=== PATIENT | female | born 1955 | race Caucasian/White ===

== ENCOUNTER → 2022-10-09 | Emergency (ER) | payer OTHER ==
[~2022-10-09] VITALS: Ht 152.4 cm; Wt 70.0 kg
[~2022-10-09] MED LIST: HYDROcodone-ACET 5/325MG TAB PO ONE
[2022-10-09 10:15] LABS: Basophils # (auto) 0 10 ^3/uL (0-0.2); Basophils % (auto) 0.4 % (0.0-2.0); Eosinophils # (auto) 0 10 ^3/uL (0-0.8); Eosinophils % (auto) 0.1 % (0.0-7.0); Hematocrit 42.8 % (36.0-46.0); Hemoglobin 14.7 g/dL (12.2-16.2); Lymphocytes # (auto) 0.7 10 ^3/uL (0.4-5.4); Lymphocytes % (auto) 6.1 % (10.0-50.0); Mean Corpuscular Hemoglobin 30.2 pg (28.0-32.0); Mean Corpuscular Hgb Conc. 34.5 g/dL (32.0-36.0); Mean Corpuscular Volume 87.6 fL (80.0-100.0); Monocytes # (auto) 0.8 10 ^3/uL (0-1.3); Monocytes % (auto) 6.9 % (0.0-12.0); Neutrophils # (auto) 10.2 10 ^3/uL (1.6-8.6); Neutrophils % (auto) 86.5 % (37.0-80.0); Red Blood Cells 4.88 10^6/uL (4.0-5.20); Red Cell Distribution Width 14.5 % (11.8-14.3); White Blood Cell 11.8 10^3/uL (4.4-10.8)
[2022-10-09 10:33] LABS: Albumin 4.1 g/dL (3.4-5.0); Calcium 9.3 mg/dL (8.5-10.1)
[2022-10-09 10:36] LABS: BUN/Creatinine Ratio 13.3 (10.0-20.0); Bilirubin, Total 0.7 mg/dL (0.2-1.0); Total Protein 7.6 g/dL (6.4-8.2)
[2022-10-09 16:04] LABS: Urine Bacteria NONE SEEN /hpf (None Seen); Urine Blood 1+ /uL (Negative); Urine Mucus FEW (None Seen); Urine Specific Gravity 1.017 (1.001-1.035); Urine WBC 1 /hpf (0 - 5)
[2022-10-09 18:00] VITALS: BP 120/75
== END | disposition home or self-care (01) ==
LOC: ER 09:26
DX: R33.9 Retention of urine, unspecified (principal); D72.829 Elevated white blood cell count, unspecified; E11.9 Type 2 diabetes mellitus without complications; E78.5 Hyperlipidemia, unspecified; Z90.710 Acquired absence of both cervix and uterus
CPT/HCPCS: 36415; 51702; 74176; 80053; 81001; 83690; 85025

== ENCOUNTER 2023-03-08 16:18 | Inpatient (IN) | payer OTHER ==
[2023-03-07 22:00] VITALS: BP 133/59; PULSE 72; RESP 17; TEMP 98.2; O2SAT 95
[~2023-03-08] VITALS: Ht 152.4 cm; Wt 73.6 kg
[2023-03-08] MEDS ORDERED: ACETAMINOPHEN 325 MG TAB PO PRN (17:00)
[2023-03-08] MEDS ORDERED: ONDANSETRON HCL 4 MG/2 ML VIAL IV PRN (17:00)
[2023-03-08 17:53] VITALS: BP 138/59; PULSE 57; RESP 18; TEMP 97.5; O2SAT 94
[2023-03-08 18:01] VITALS: BP 138/59; PULSE 57; RESP 18; TEMP 97.5; O2SAT 94
[2023-03-08 20:00] VITALS: PULSE 72; RESP 17; O2SAT 95
[2023-03-08] MEDS: MORPHINE SULFATE INJ 2 MG/ml SYRG IV PRN (20:37)
[2023-03-08] MEDS: cefTRIAXone 1GM/50ML D5W 50 ML IV SCH (20:40)
[2023-03-08] MEDS: SODIUM CHLORIDE 0.9% 1,000 ML IV SCH (20:41)
[2023-03-08] MEDS: HYDROcodone-ACET 5/325MG TAB PO PRN (22:57)
[2023-03-09] VITALS (8 sets, daily range): BP systolic 112–165; BP diastolic 57–81; PULSE 65–79; RESP 14–18; TEMP 97.7–98.6; O2SAT 93–100
[2023-03-09] MEDS: SODIUM CHLORIDE 0.9% 1,000 ML IV SCH ×3 (01:20→20:43)
[2023-03-09] MEDS ORDERED: ALBUAER3 IN (01:40)
[2023-03-09] MEDS ORDERED: FLUT1AER7 IN (02:06)
[2023-03-09] MEDS ORDERED: SEMA3TAB2 PO (02:06)
[2023-03-09] MEDS ORDERED: SERT-160 PO (02:06)
[2023-03-09] MEDS ORDERED: CLON-857 PO (02:06)
[2023-03-09] MEDS ORDERED: ROSU20TA14 PO (02:06)
[2023-03-09] MEDS ORDERED: TRAZ-228 PO (02:06)
[2023-03-09] MEDS: HYDROcodone-ACET 5/325MG TAB PO PRN ×2 (04:54→15:01)
[2023-03-09 06:00] LABS: Basophils # (auto) 0 10 ^3/uL (0-0.2); Basophils % (auto) 0.4 % (0.0-2.0); Eosinophils # (auto) 0.5 10 ^3/uL (0-0.8); Eosinophils % (auto) 8.3 % (0.0-7.0); Hematocrit 32.3 % (36.0-46.0); Hemoglobin 10.9 g/dL (12.2-16.2); Lymphocytes # (auto) 1.6 10 ^3/uL (0.4-5.4); Lymphocytes % (auto) 24.9 % (10.0-50.0); Mean Corpuscular Hemoglobin 29.7 pg (28.0-32.0); Mean Corpuscular Hgb Conc. 33.9 g/dL (32.0-36.0); Mean Corpuscular Volume 87.6 fL (80.0-100.0); Monocytes # (auto) 0.6 10 ^3/uL (0-1.3); Monocytes % (auto) 9.1 % (0.0-12.0); Neutrophils # (auto) 3.7 10 ^3/uL (1.6-8.6); Neutrophils % (auto) 57.3 % (37.0-80.0); Red Blood Cells 3.69 10^6/uL (4.0-5.20); Red Cell Distribution Width 15.5 % (11.8-14.3); White Blood Cell 6.4 10^3/uL (4.4-10.8)
[2023-03-09] MEDS: cefTRIAXone 1GM/50ML D5W 50 ML IV SCH (09:41)
[2023-03-09] MEDS ORDERED: INFLUENZA QUAD 2023-2024 0.5 ML SYRG IM ONE (10:00)
[2023-03-09] MEDS ORDERED: fentaNYL CITRATE 100 MCG/2 ML VL ONE (17:36)
[2023-03-09] MEDS ORDERED: LIDOCAINE 2% (LOCAL ANESTH.) PF 5ml SDV ONE ×2 (17:37→17:49)
[2023-03-09] MEDS ORDERED: GLYCOPYRROLATE 0.2 MG/ML 1ML VIAL ONE (17:37)
[2023-03-09] MEDS ORDERED: ONDANSETRON HCL 4 MG/2 ML VIAL ONE (17:37)
[2023-03-09] MEDS ORDERED: PROPOFOL 10 MG/ML 20 ML IV ONE (17:37)
[2023-03-09] MEDS ORDERED: DexAMETHasone SOD PHOS 10MG/1ML VIAL INJ ONE (17:38)
[2023-03-09] MEDS ORDERED: ONDANSETRON HCL 4 MG/2 ML VIAL IV PRN (19:30)
[2023-03-09] MEDS ORDERED: hydrALAZINE HCL 20 MG/ML VL IV PRN (19:30)
[2023-03-09] MEDS ORDERED: ePHEDrine SULFATE 50 MG/ML AMP IV PRN (19:30)
[2023-03-09] MEDS ORDERED: FLUMAZENIL 0.1 MG/ML INJ 10ML MDV IV PRN (19:30)
[2023-03-09] MEDS ORDERED: HYDROmorphone HCL 2 MG/ML VL/or syr IV PRN (19:30)
[2023-03-09] MEDS ORDERED: fentaNYL CITRATE 100 MCG/2 ML VL IV PRN (19:30)
[2023-03-09] MEDS ORDERED: NALOXONE HCL 0.4 MG/ML VIAL IV PRN (19:30)
[2023-03-09] MEDS ORDERED: LABETALOL HCL 5 MG/ML 4ML SYRINGE IV PRN (19:30)
[2023-03-09] MEDS: MORPHINE SULFATE INJ 2 MG/ml SYRG IV PRN (20:40)
[2023-03-09 21:36] LABS: Chloride 108 mmol/L (98-107); Potassium 4.3 mmol/L (3.5-5.1); Sodium 140 mmol/L (136-145)
[2023-03-09 21:37] LABS: Anion Gap 6 (5-15); Calcium 8.9 mg/dL (8.7-10.4); Carbon Dioxide 26 mmol/L (20-30)
[2023-03-09 21:42] LABS: Glucose 131 mg/dL (74-106)
[2023-03-09 21:45] LABS: BUN/Creatinine Ratio 7.8 (10.0-20.0); Blood Urea Nitrogen < 5 mg/dL (9-23)
[2023-03-10] VITALS (7 sets, daily range): BP systolic 126–141; BP diastolic 53–83; PULSE 69–82; RESP 14–18; TEMP 97.7–98.5; O2SAT 91–96
[2023-03-10] MEDS: SODIUM CHLORIDE 0.9% 1,000 ML IV SCH ×4 (05:11→22:48)
[2023-03-10] MEDS: cefTRIAXone 1GM/50ML D5W 50 ML IV SCH (09:02)
[2023-03-10] MEDS: HYDROcodone-ACET 5/325MG TAB PO PRN ×3 (10:15→21:36)
[2023-03-11] MEDS: HYDROcodone-ACET 5/325MG TAB PO PRN (04:53)
[2023-03-11 05:00] VITALS: BP 119/58; PULSE 68; RESP 18; TEMP 98.5; O2SAT 95
[2023-03-11] MEDS ORDERED: DOCUSATE SOD 100 MG CAP PO ONE (05:00)
[2023-03-11] MEDS: SODIUM CHLORIDE 0.9% 1,000 ML IV SCH (06:40)
[2023-03-11 08:00] VITALS: PULSE 66; RESP 16; O2SAT 96
[2023-03-11 09:00] VITALS: BP 118/67; PULSE 66; RESP 16; TEMP 97.7; O2SAT 96
[2023-03-11] MEDS: cefTRIAXone 1GM/50ML D5W 50 ML IV SCH (09:37)
[2023-03-11] MEDS ORDERED: DOCUSATE SOD 100 MG CAP PO SCH (10:00)
[2023-03-11 13:00] VITALS: BP 135/84; PULSE 76; RESP 18; TEMP 97.9; O2SAT 92
[2023-03-11] MEDS ORDERED: CIPR500T4 PO (14:23)
[2023-03-11] MEDS ORDERED: SIME125C65 PO (14:30)
[2023-03-11] MEDS ORDERED: HYDR-4902 PO (15:40)
[2023-03-11 15:43] VITALS: BP 135/84; PULSE 76; RESP 18; TEMP 97.9; O2SAT 92
[2023-03-11 17:07] VITALS: BP 144/65; PULSE 82; RESP 18; TEMP 98.1; O2SAT 93
== END 2023-03-11 18:22 | disposition home health service (06) | DRG 670 ==
LOC: EAST 16:18
PROVIDERS: ADMIT Internal Medicine; ATTEND Internal Medicine
PROC: 0TCD8ZZ Extirpation of Matter from Urethra, Via Natural or Artificial Opening Endoscopic (ICD-10-PCS; 2023-03-09)
PROC: 0T7D8ZZ Dilation of Urethra, Via Natural or Artificial Opening Endoscopic (ICD-10-PCS; 2023-03-09)
PROC: 0TCC8ZZ Extirpation of Matter from Bladder Neck, Via Natural or Artificial Opening Endoscopic (ICD-10-PCS; 2023-03-09)
PROC: 0TBC8ZZ Excision of Bladder Neck, Via Natural or Artificial Opening Endoscopic (ICD-10-PCS; principal; 2023-03-09 17:42)
PROC: 0TBD8ZZ Excision of Urethra, Via Natural or Artificial Opening Endoscopic (ICD-10-PCS; 2023-03-09 17:42)
DX: D49.4 Neoplasm of unspecified behavior of bladder (principal); R22.1 Localized swelling, mass and lump, neck; N35.92 Unspecified urethral stricture, female; E11.9 Type 2 diabetes mellitus without complications; R31.0 Gross hematuria; F41.9 Anxiety disorder, unspecified; R33.9 Retention of urine, unspecified; Z79.899 Other long term (current) drug therapy; Z85.41 Personal history of malignant neoplasm of cervix uteri; Z90.710 Acquired absence of both cervix and uterus; Z28.21 Immunization not carried out because of patient refusal
CPT/HCPCS: 36415; 80048; 82962; 85025; 90686; 97110; 97116; 97163; 97530; G0378; J0696; J1100; J2001; J2405; J2704

== ENCOUNTER 2023-05-04 14:03 | Inpatient (IN) | payer OTHER ==
[~2023-05-04] VITALS: Ht 152.4 cm; Wt 68.7 kg
[~2023-05-04 14:03] MED LIST changes: +ALBUAER3 IN; +CIPR500T4 PO; +CLON-857 PO; +FLUT1AER7 IN; +HYDR-4902 PO; -HYDROcodone-ACET 5/325MG TAB PO ONE; +ROSU20TA14 PO; +SEMA3TAB2 PO; +SERT-160 PO; +SIME125C65 PO; +TRAZ-228 PO
[2023-05-04 19:37] LABS: Basophils # (auto) 0.1 10 ^3/uL (0-0.2); Basophils % (auto) 0.7 % (0.0-2.0); Eosinophils # (auto) 0.5 10 ^3/uL (0-0.8); Eosinophils % (auto) 5.9 % (0.0-7.0); Hematocrit 33.6 % (36.0-46.0); Lymphocytes # (auto) 1.2 10 ^3/uL (0.4-5.4); Lymphocytes % (auto) 15.4 % (10.0-50.0); Mean Corpuscular Hemoglobin 27.9 pg (28.0-32.0); Mean Corpuscular Hgb Conc. 32.6 g/dL (32.0-36.0); Mean Corpuscular Volume 85.4 fL (80.0-100.0); Monocytes # (auto) 0.6 10 ^3/uL (0-1.3); Monocytes % (auto) 8.2 % (0.0-12.0); Neutrophils # (auto) 5.4 10 ^3/uL (1.6-8.6); Neutrophils % (auto) 69.8 % (37.0-80.0); Red Blood Cells 3.94 10^6/uL (4.0-5.20); Red Cell Distribution Width 14.7 % (11.8-14.3); White Blood Cell 7.7 10^3/uL (4.4-10.8)
[2023-05-04 19:56] LABS: Alkaline Phosphatase 84 U/L (46-116); Anion Gap 10 (5-15); Aspartate Aminotransferase 17 U/L (13-40); Bilirubin, Total 0.3 mg/dL (0.2-1.0); Blood Urea Nitrogen 40 mg/dL (9-23); Calcium 9.5 mg/dL (8.5-10.1); Carbon Dioxide 22 mmol/L (20-30); Chloride 103 mmol/L (98-107); Glucose 105 mg/dL (74-106); Sodium 135 mmol/L (136-145); Total Protein 6.7 g/dL (5.7-8.2)
[2023-05-04 20:03] LABS: Alanine Aminotransferase < 9 U/L (7-40)
[2023-05-04] MEDS ORDERED: InsuLIN REG 1unit/0.01ml Soln (100units/ml) IV ONE (20:15)
[2023-05-04] MEDS ORDERED: CALCIUM GLUC 1,000mg/50ml-NS 50 ML IV ONE (20:15)
[2023-05-04] MEDS ORDERED: DEXTROSE (50%) 50ML SYRG IV ONE (20:15)
[2023-05-04] MEDS ORDERED: ALBUTEROL SULF 2.5 MG/0.5ML(0.5%) NEB SOLN NEB ONE (20:15)
[2023-05-04] MEDS ORDERED: SODIUM BICARBONATE 8.4 % INJ 50ML VIAL IV ONE (20:15)
[2023-05-04 20:33] LABS: Urine Bacteria MANY /hpf (None Seen); Urine Blood 3+ /uL (Negative); Urine Clarity CLOUDY (Clear); Urine Mucus FEW (None Seen); Urine Protein, UAD 2+ (Negative); Urine Specific Gravity 1.013 (1.001-1.035); Urine Urobilinogen Normal (Negative); Urine WBC 174 /hpf (0 - 5); Urine WBC Clumps PRESENT /hpf (None Seen); Urine pH 7.5 (5.0-8.0)
[2023-05-04 20:35] LABS: Urine Color BROWN (Yellow)
[2023-05-04 21:30] VITALS: PULSE 99; RESP 14; O2SAT 96
[2023-05-04] MEDS ORDERED: SODIUM ZIRCONIUM CYCL 10 GM PAK PO ONE (22:30)
[2023-05-04] MEDS: cefTRIAXone 1GM/50ML D5W 50 ML IV SCH (23:17)
[2023-05-04] MEDS ORDERED: cefTRIAXone 1GM/50ML D5W 50 ML IV ONE (23:45)
[2023-05-05] MEDS ORDERED: MORPHINE SULFATE INJ 2 MG/ml SYRG IV PRN (01:00)
[2023-05-05] MEDS ORDERED: ACETAMINOPHEN 325 MG TAB PO PRN (01:00)
[2023-05-05] MEDS ORDERED: NITROGLYCERIN 0.4 MG SL TAB SL PRN (01:00)
[2023-05-05] MEDS ORDERED: diphenhdrAMINE HCL 50 MG/1 ML VL IV ONE (01:30)
[2023-05-05] MEDS: ONDANSETRON HCL 4 MG/2 ML VIAL IV PRN ×3 (04:26→20:14)
[2023-05-05] MEDS ORDERED: DEXTROSE (50%) 50ML SYRG IV PRN (05:15)
[2023-05-05] MEDS: ACCU-CHEK COMFORT CURVE STRIP VI SCH ×4 (05:51→23:58)
[2023-05-05] MEDS: InsuLIN REG 1unit/0.01ml Soln (100units/ml) SC SCH ×4 (05:51→23:58)
[2023-05-05 06:14] LABS: Basophils # (auto) 0 10 ^3/uL (0-0.2); Basophils % (auto) 0.5 % (0.0-2.0); Eosinophils # (auto) 0.3 10 ^3/uL (0-0.8); Eosinophils % (auto) 5.1 % (0.0-7.0); Hematocrit 28.4 % (36.0-46.0); Hemoglobin 9.5 g/dL (12.2-16.2); Lymphocytes # (auto) 1.2 10 ^3/uL (0.4-5.4); Lymphocytes % (auto) 17.3 % (10.0-50.0); Mean Corpuscular Hemoglobin 28.5 pg (28.0-32.0); Mean Corpuscular Hgb Conc. 33.6 g/dL (32.0-36.0); Mean Corpuscular Volume 84.8 fL (80.0-100.0); Monocytes # (auto) 0.6 10 ^3/uL (0-1.3); Neutrophils # (auto) 4.6 10 ^3/uL (1.6-8.6); Neutrophils % (auto) 68.1 % (37.0-80.0); Red Blood Cells 3.35 10^6/uL (4.0-5.20); Red Cell Distribution Width 14.4 % (11.8-14.3); White Blood Cell 6.7 10^3/uL (4.4-10.8)
[2023-05-05 06:15] LABS: Anion Gap 11 (5-15); Carbon Dioxide 24 mmol/L (20-30); Chloride 102 mmol/L (98-107); Potassium 5.5 mmol/L (3.5-5.1); Sodium 137 mmol/L (136-145)
[2023-05-05 06:17] LABS: Calcium 9.1 mg/dL (8.5-10.1)
[2023-05-05 06:21] LABS: BUN/Creatinine Ratio 4.9 (10.0-20.0); Blood Urea Nitrogen 41 mg/dL (9-23); Glucose 96 mg/dL (74-106)
[2023-05-05] MEDS: PROCHLORPERAZINE EDISYLATE 5 MG/ML 2ML VIAL IV PRN (06:38)
[2023-05-05 08:10] LABS: INR 1.12 (0.9-1.15); Partial Thromboplastin Time 32.3 SEC (24.5-34.5); Prothrombin Time 11.7 sec (9.3-11.8)
[2023-05-05 08:58] VITALS: PULSE 76; RESP 16; O2SAT 95
[2023-05-05] MEDS ORDERED: SODIUM CHLORIDE 0.9% 1,000 ML IV SCH (13:00)
[2023-05-05 13:03] LABS: Chloride 103 mmol/L (98-107); Sodium 137 mmol/L (136-145)
[2023-05-05 13:04] LABS: Anion Gap 9 (5-15); Calcium 9.1 mg/dL (8.5-10.1); Carbon Dioxide 25 mmol/L (20-30)
[2023-05-05] MEDS: SODIUM ZIRCONIUM CYCL 10 GM PAK PO SCH ×4 (13:06→22:13)
[2023-05-05 13:09] LABS: BUN/Creatinine Ratio 5.4 (10.0-20.0); Blood Urea Nitrogen 46 mg/dL (9-23); Glucose 104 mg/dL (74-106)
[2023-05-05] MEDS: SODIUM BICARBONATE 50ML VIAL 150 ML in D5W 5% 1,000 ML IV SCH (15:00)
[2023-05-05] MEDS: HYDROcodone-ACET 5/325MG TAB PO PRN ×2 (15:20→23:32)
[2023-05-05 19:03] LABS: Chloride 102 mmol/L (98-107); Sodium 136 mmol/L (136-145)
[2023-05-05 19:04] LABS: Anion Gap 10 (5-15); Calcium 8.9 mg/dL (8.5-10.1); Carbon Dioxide 24 mmol/L (20-30)
[2023-05-05 19:09] LABS: BUN/Creatinine Ratio 4.8 (10.0-20.0); Blood Urea Nitrogen 40 mg/dL (9-23); Glucose 97 mg/dL (74-106)
[2023-05-05 19:30] LABS: Potassium 5.7 mmol/L (3.5-5.1)
[2023-05-05 20:00] VITALS: PULSE 78; O2SAT 97
[2023-05-05] MEDS: cefTRIAXone 1GM/50ML D5W 50 ML IV SCH (21:27)
[2023-05-05] MEDS ORDERED: TEMAZEPAM 15 MG CAP PO PRN (23:15)
[2023-05-06] VITALS (13 sets, daily range): BP systolic 136–162; BP diastolic 68–89; PULSE 72–92; RESP 14–19; TEMP 97.7–98.5; O2SAT 93–100
[2023-05-06 00:48] LABS: Chloride 100 mmol/L (98-107); Potassium 4.6 mmol/L (3.5-5.1); Sodium 135 mmol/L (136-145)
[2023-05-06 00:49] LABS: Anion Gap 10 (5-15); Calcium 8.5 mg/dL (8.5-10.1); Carbon Dioxide 25 mmol/L (20-30)
[2023-05-06 00:55] LABS: BUN/Creatinine Ratio 5.4 (10.0-20.0); Blood Urea Nitrogen 45 mg/dL (9-23); Glucose 127 mg/dL (74-106)
[2023-05-06] MEDS: SODIUM BICARBONATE 50ML VIAL 150 ML in D5W 5% 1,000 ML IV SCH (02:30)
[2023-05-06] MEDS ORDERED: ALBUTEROL MEDNEB 2.5 mg/3ml NEB NEB PRN (04:30)
[2023-05-06] MEDS ORDERED: IPRATROPIUM BROM 0.5 MG/2.5ML INH SOL NEB PRN (04:30)
[2023-05-06] MEDS ORDERED: NITROGLYCERIN 0.4 MG SL TAB SL PRN (04:30)
[2023-05-06 05:12] LABS: Basophils # (auto) 0 10 ^3/uL (0-0.2); Basophils % (auto) 0.4 % (0.0-2.0); Eosinophils # (auto) 0.6 10 ^3/uL (0-0.8); Eosinophils % (auto) 8.4 % (0.0-7.0); Hematocrit 28.4 % (36.0-46.0); Hemoglobin 9.6 g/dL (12.2-16.2); Lymphocytes # (auto) 1.5 10 ^3/uL (0.4-5.4); Mean Corpuscular Hemoglobin 28.1 pg (28.0-32.0); Mean Corpuscular Hgb Conc. 33.8 g/dL (32.0-36.0); Mean Corpuscular Volume 83.2 fL (80.0-100.0); Monocytes # (auto) 0.7 10 ^3/uL (0-1.3); Monocytes % (auto) 9.3 % (0.0-12.0); Neutrophils # (auto) 4.8 10 ^3/uL (1.6-8.6); Neutrophils % (auto) 62.9 % (37.0-80.0); Nucleated Red Blood Cells % 0.1 %; Red Blood Cells 3.41 10^6/uL (4.0-5.20); Red Cell Distribution Width 14.3 % (11.8-14.3); White Blood Cell 7.6 10^3/uL (4.4-10.8)
[2023-05-06] MEDS: InsuLIN REG 1unit/0.01ml Soln (100units/ml) SC SCH ×4 (06:00→23:13)
[2023-05-06] MEDS: SODIUM ZIRCONIUM CYCL 10 GM PAK PO SCH ×3 (06:00→14:30)
[2023-05-06] MEDS: ACCU-CHEK COMFORT CURVE STRIP VI SCH ×4 (06:05→23:05)
[2023-05-06] MEDS: HYDROcodone-ACET 5/325MG TAB PO PRN ×3 (08:15→22:19)
[2023-05-06] MEDS: ONDANSETRON HCL 4 MG/2 ML VIAL IV PRN ×2 (08:15→23:12)
[2023-05-06] MEDS: SODIUM CHLORIDE 0.9% 1,000 ML IV SCH (14:45)
[2023-05-06] MEDS: cefTRIAXone 1GM/50ML D5W 50 ML IV SCH (21:09)
[2023-05-07] VITALS (11 sets, daily range): BP systolic 149–169; BP diastolic 82–93; PULSE 68–105; RESP 14–19; TEMP 97.8–98.4; O2SAT 94–98
[2023-05-07] MEDS: ACCU-CHEK COMFORT CURVE STRIP VI SCH ×4 (05:24→23:34)
[2023-05-07] MEDS: InsuLIN REG 1unit/0.01ml Soln (100units/ml) SC SCH ×4 (05:24→23:34)
[2023-05-07] MEDS: SODIUM CHLORIDE 0.9% 1,000 ML IV SCH (07:25)
[2023-05-07 07:50] LABS: Anion Gap 13 (5-15); Carbon Dioxide 24 mmol/L (20-30); Chloride 101 mmol/L (98-107); Potassium 4.4 mmol/L (3.5-5.1); Sodium 138 mmol/L (136-145)
[2023-05-07 07:52] LABS: Calcium 8.8 mg/dL (8.5-10.1)
[2023-05-07 07:57] LABS: BUN/Creatinine Ratio 4.7 (10.0-20.0); Blood Urea Nitrogen 39 mg/dL (9-23); Glucose 87 mg/dL (74-106)
[2023-05-07] MEDS: ONDANSETRON HCL 4 MG/2 ML VIAL IV PRN (08:25)
[2023-05-07] MEDS ORDERED: fentaNYL CITRATE 100 MCG/2 ML VL ONE (09:37)
[2023-05-07] MEDS ORDERED: MIDAZOLAM HCL 2MG/2ML 2ml VIAL (1mg/ml) ONE (09:37)
[2023-05-07] MEDS ORDERED: LIDOCAINE 2%HCL (LOCAL ANESTH.) INJ 20ML MDV ONE ×2 (09:38→10:15)
[2023-05-07] MEDS ORDERED: IODIXANOL 320MG/ML 100ML BTL IV ONE (09:38)
[2023-05-07] MEDS ORDERED: cefTRIAXone 1GM/50ML D5W 50 ML IV ONE (09:59)
[2023-05-07] MEDS ORDERED: SODIUM ZIRCONIUM CYCL 10 GM PAK PO SCH (10:00)
[2023-05-07] MEDS: HYDROcodone-ACET 5/325MG TAB PO PRN ×3 (11:21→20:41)
[2023-05-07] MEDS: PROCHLORPERAZINE EDISYLATE 5 MG/ML 2ML VIAL IV PRN (13:25)
[2023-05-07 19:39] LABS: COVID19 ANTIGEN SOFIA FIA NEGATIVE (NEGATIVE)
[2023-05-07] MEDS: cefTRIAXone 1GM/50ML D5W 50 ML IV SCH (20:41)
[2023-05-07] MEDS: DOCUSATE SOD 100 MG CAP PO PRN (20:42)
[2023-05-08] VITALS (8 sets, daily range): BP systolic 148–171; BP diastolic 78–93; PULSE 70–82; RESP 16–18; TEMP 36.6; O2SAT 95–98
[2023-05-08] MEDS: SODIUM CHLORIDE 0.9% 1,000 ML IV SCH ×2 (00:03→16:45)
[2023-05-08] MEDS: HYDROcodone-ACET 5/325MG TAB PO PRN ×4 (02:33→14:44)
[2023-05-08] MEDS: InsuLIN REG 1unit/0.01ml Soln (100units/ml) SC SCH ×3 (06:00→18:00)
[2023-05-08] MEDS: ACCU-CHEK COMFORT CURVE STRIP VI SCH ×3 (06:05→18:00)
[2023-05-08 06:45] LABS: Chloride 105 mmol/L (98-107); Potassium 3.9 mmol/L (3.5-5.1); Sodium 138 mmol/L (136-145)
[2023-05-08 06:46] LABS: Anion Gap 8 (5-15); Carbon Dioxide 25 mmol/L (20-30)
[2023-05-08 06:47] LABS: Calcium 8.6 mg/dL (8.7-10.4)
[2023-05-08 06:48] LABS: Basophils # (auto) 0.1 10 ^3/uL (0-0.2); Basophils % (auto) 0.9 % (0.0-2.0); Eosinophils # (auto) 0.5 10 ^3/uL (0-0.8); Eosinophils % (auto) 6.3 % (0.0-7.0); Hematocrit 33.5 % (36.0-46.0); Hemoglobin 11.2 g/dL (12.2-16.2); Lymphocytes # (auto) 1.2 10 ^3/uL (0.4-5.4); Lymphocytes % (auto) 16.5 % (10.0-50.0); Mean Corpuscular Hemoglobin 28.2 pg (28.0-32.0); Mean Corpuscular Hgb Conc. 33.4 g/dL (32.0-36.0); Mean Corpuscular Volume 84.4 fL (80.0-100.0); Monocytes # (auto) 0.5 10 ^3/uL (0-1.3); Monocytes % (auto) 7.4 % (0.0-12.0); Neutrophils % (auto) 68.9 % (37.0-80.0); Nucleated Red Blood Cells % 0.1 %; Red Blood Cells 3.97 10^6/uL (4.0-5.20); Red Cell Distribution Width 14.5 % (11.8-14.3); White Blood Cell 7.2 10^3/uL (4.4-10.8)
[2023-05-08 06:51] LABS: BUN/Creatinine Ratio 8.4 (10.0-20.0); Blood Urea Nitrogen 22 mg/dL (9-23); Glucose 89 mg/dL (74-106)
[2023-05-08] MEDS ORDERED: ALPRAZolam 0.25 MG TAB PO SCH (10:00)
[2023-05-08] MEDS: DOCUSATE SOD 100 MG CAP PO PRN (10:52)
== END 2023-05-08 17:45 | DRG 690 ==
LOC: ER 14:03 → TELE 05-05 01:09 → TELE-EAST 05-06 10:09
PROVIDERS: ADMIT Nurse Practitioner Family; ATTEND Hospitalist
PROC: 0T9130Z Drainage of Left Kidney with Drainage Device, Percutaneous Approach (ICD-10-PCS; principal; 2023-05-07)
PROC: BT42ZZZ Ultrasonography of Left Kidney (ICD-10-PCS; 2023-05-07)
PROC: BT121ZZ Fluoroscopy of Left Kidney using Low Osmolar Contrast (ICD-10-PCS; 2023-05-07)
DX: N13.6 Pyonephrosis (principal); N17.9 Acute kidney failure, unspecified; E87.5 Hyperkalemia; Z20.822 Contact with and (suspected) exposure to COVID-19; D63.1 Anemia in chronic kidney disease; D69.6 Thrombocytopenia, unspecified; E78.00 Pure hypercholesterolemia, unspecified; R31.9 Hematuria, unspecified; E11.22 Type 2 diabetes mellitus with diabetic chronic kidney disease; I10 Essential (primary) hypertension; K59.00 Constipation, unspecified; Z85.51 Personal history of malignant neoplasm of bladder; Z85.41 Personal history of malignant neoplasm of cervix uteri; Z90.710 Acquired absence of both cervix and uterus; Z80.49 Family history of malignant neoplasm of other genital organs; Z82.49 Family history of ischemic heart disease and other diseases of the circulatory system
CPT/HCPCS: 36415; 50430; 74176; 74425; 76775; 76942; 80048; 80053; 81001; 82962; 83605; 84132; 84484; 85025; 85610; 85730; 86850; 86900; 86901; 87086; 87426; 93005; 94640; 97163; 99152; 99291; G0378; J0696; J1815; J2250; J2405; Q9967